=== PATIENT | male | born 1970 | race Caucasian/White ===

== ENCOUNTER 2021-09-29 09:42 | Emergency (ER) | payer MEDICARE ==
--- NOTE | 2021-09-29 10:33 | XRAY ---
Indication: Bilateral leg pain. Two-dimensional sonogram and color Doppler imaging of the major venous vessels of the left and right leg performed. Comparison: None No thrombus seen in the examined deep venous vessels of the left and right leg including greater saphenous vein. Veins demonstrate normal compressibility. Venous waveforms are normal with and without augmentation. Impression: Left and right legs negative for DVT.
--- NOTE | 2021-09-29 10:38 | ERPHSYRPT ---
- History of Present Illness Time Seen by Provider: 09/29/21 09:55 Source: patient Patient Subjective Stated Complaint: Pt states that he has been driving for 4 days from [place] and has pain in alexandro lower ext, hx of PE Triage Nursing Assessment: Pt brought self to the ER, hypertensive, rates pain 7/10, right pedal pulses bounding, left pedal pulses weak, states pain is in alexandro legs starting in the thighs and radiates all the way down the legs, hx of PE, hx of lung cancer and doing immunotherapy, hx of HIV Physician History: This is a 50-year-old white male patient who drove from [place] to visit a friend here in town and arrived about midnight last night. He has a history of lung cancer and is undergoing treatment for that. He also has a history of HIV positivity. 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 He was on Eliquis in the past. After taking that medication for several months, it was discontinued. Patient is concerned about a recurrent DVT because he has pain in his bilateral lower extremities after the long drive. He is not short of breath and he has not coughing. Method of Injury: other (No injury) Occurred: yesterday Quality: aching (Mild bilateral lower extremities posteriorly) Severity of Pain-Max: mild Severity of Pain-Current: mild Lower Extremities Pain: leg: bilateral Modifying Factors: Improves With: nothing Associated Symptoms: none Allergies/Adverse Reactions: No Known Drug Allergies Allergy (Verified 09/29/21 09:56) Travel Risk - International Travel Have you traveled outside of the country in past 3 weeks: No - Coronavirus Screening Are you exhibiting any of the following symptoms?: No Close contact with a COVID-19 positive Pt in past 14-21 Days: No - Vaccine Status Have you recieved a Covid-19 vaccination: No - Review of Systems Constitutional: No Symptoms Eyes: No Symptoms Ears, Nose, & Throat: No Symptoms Respiratory: No Symptoms Cardiac: No Symptoms Abdominal/Gastrointestinal: No Symptoms Genitourinary Symptoms: No Symptoms Musculoskeletal: Other (Achiness bilateral lower extremities) Skin: No Symptoms Neurological: No Symptoms Psychological: No Symptoms Endocrine: No Symptoms Hematologic/Lymphatic: No Symptoms Immunological/Allergic: No Symptoms All Other Systems: Reviewed and Negative - Past Medical History Pertinent Past Medical History: Yes Respiratory History: Lung Cancer Other Medical History: HIV - Past Surgical History Past Surgical History: No - Social History Smoking Status: Current every day smoker Exposure to second hand smoke: Yes Drug Use: none Patient Lives Alone: No - Nursing Vital Signs Nursing Vital Signs: Initial Vital Signs Temperature 97.6 F 09/29/21 09:46 Pulse Rate 94 H 09/29/21 09:46 Blood Pressure 153/97 09/29/21 09:46 O2 Sat by Pulse Oximetry 100 09/29/21 09:46 Pain Scale Pain Intensity 7 - Physical Exam General Appearance: no apparent distress, alert, anxiety Eyes, Ears, Nose, Throat Exam: normal ENT inspection, moist mucous membranes Neck Exam: normal inspection, non-tender, supple, full range of motion Cardiovascular/Respiratory Exam: chest non-tender, normal breath sounds, regular rate/rhythm, heart sounds normal, no respiratory distress Gastrointestinal/Abdominal Exam: non-tender Back Exam: normal inspection, normal range of motion, No CVA tenderness, No vertebral tenderness Hips Exam: bilateral: non-tender, normal inspection, normal range of motion, no evidence of injury Legs Exam: bilateral leg: normal inspection, normal range of motion, no evidence of injury, soft tissue tenderness (Bilateral below the knee) Knees Exam: bilateral knee: non-tender, normal inspection, normal range of motion, no evidence of injury Ankle Exam: bilateral ankle: non-tender, normal inspection, normal range of motion, no evidence of injury Foot Exam: bilateral foot: non-tender, normal inspection, normal range of motion, no evidence of injury Neuro/Tendon Exam: normal sensation, normal motor functions, normal tendon functions, responds to pain, no evidence tendon injury Mental Status Exam: alert, oriented x 3, cooperative Skin Exam: normal color, warm, dry SpO2 Interpretation: normal SpO2: 100 O2 Delivery: Room Air - Course Nursing assessment & vital signs reviewed: Yes Ordered Tests: Active Orders 24 hr Category Date Time Status VENOUS BILATERAL EXTREMITY [US] Stat Exams 09/29/21 10:01 Completed - Progress Progress: unchanged Progress Note: 09/29/21 10:38 Bilateral lower extremity venous Dopplers are negative for DVT. Counseled pt/family regarding: diagnosis, need for follow-up, rad results - Departure Departure Disposition: Home Clinical Impression: Musculoskeletal pain Condition: Stable Critical Care Time: No Additional Instructions: Take all your medication as prescribed. When driving long distances make sure that you stop several times and get out of the car and ambulate frequently.
[2021-09-29 10:57] VITALS: BP 138/88; PULSE 88; O2SAT 97
== END 2021-09-29 10:58 | disposition home or self-care (01) ==
LOC: ED 09:42
DX: M79.662 Pain in left lower leg (principal); M79.661 Pain in right lower leg; Z21 Asymptomatic human immunodeficiency virus [HIV] infection status; Z86.718 Personal history of other venous thrombosis and embolism; C34.90 Malignant neoplasm of unspecified part of unspecified bronchus or lung; Z72.0 Tobacco use
CPT/HCPCS: 93970; 99283